=== PATIENT | female | born 2000 | race Two or more races ===

== ENCOUNTER 2021-04-14 21:11 | Emergency (ER) | payer OTHER ==
[~2021-04-14] VITALS: Ht 175.3 cm; Wt 90.9 kg
[2021-04-15] MEDS ORDERED: MORPHINE 2 MG/ML 1ML VIAL (J2270) IV PRN (01:20)
[2021-04-15] MEDS ORDERED: GI COCKTAIL 50ML BTL(HYOSCYAMINE/MAALOX/LIDOCAINE VISCOUS)(1:3:1) PO ONE (01:20)
[2021-04-15 01:25] LABS: BASO % 0.2 % (0.0-1.0); EOS # 0.1 10^3/uL (0.0-0.5); HEMOGLOBIN 13.5 g/dl (12.0-15.5); LYMPH # 1.5 10^3/uL (1.5-5.0); MEAN CORPUSCULAR HEMOGLOBIN 29.7 pg (27.0-33.0); MEAN CORPUSCULAR HGB CONC 32.9 g/dl (32.0-36.5); MEAN CORPUSCULAR VOLUME 90.3 fl (80.0-96.0); MONO # 0.5 10^3/uL (0.0-0.8); NEUTROPHILS # 2.8 10^3/uL (1.5-8.5); NEUTROPHILS % 56.4 % (36.0-66.0); PLATELET COUNT, AUTOMATED 227 10^3/uL (150-450); RED BLOOD COUNT 4.54 10^6/uL (4.00-5.40); WHITE BLOOD COUNT 4.9 10^3/uL (4.0-10.0)
[2021-04-15 01:55] LABS: ALBUMIN 3.7 GM/DL (3.2-5.2); ALT/SGPT 33 U/L (12-78); BILIRUBIN,DIRECT < 0.1 MG/DL (0.0-0.2); BILIRUBIN,TOTAL 0.3 MG/DL (0.2-1.0); BLOOD UREA NITROGEN 8 MG/DL (7-18); CALCIUM LEVEL 8.7 MG/DL (8.5-10.1); CARBON DIOXIDE LEVEL 27 MEQ/L (21-32); CHLORIDE LEVEL 109 MEQ/L (98-107); CREATININE FOR GFR 0.69 MG/DL (0.55-1.30); GLOMERULAR FILTRATION RATE > 60.0 (>60); GLUCOSE, FASTING 88 MG/DL (70-100); LIPASE 102 U/L (73-393); POTASSIUM SERUM 3.6 MEQ/L (3.5-5.1); SODIUM LEVEL 141 MEQ/L (136-145); TOTAL PROTEIN 7.2 GM/DL (6.4-8.2)
[2021-04-15 01:58] LABS: HCG, SERUM QUALITATIVE NEGATIVE (NEGATIVE)
[2021-04-15] MEDS ORDERED: ISOVUE-370 76% 100ML VIAL As Ordered ONE (02:32)
--- NOTE | 2021-04-15 04:05 | REPVR ---
PROCEDURE INFORMATION: Exam: CT Abdomen And Pelvis With Contrast Exam date and time: 04/15/2021 2:50 AM Age: 21 years old Clinical indication: Other: Abd pain x4 days TECHNIQUE: Imaging protocol: Computed tomography of the abdomen and pelvis with contrast. Radiation optimization: All CT scans at this facility use at least one of these dose optimization techniques: automated exposure control; mA and/or kV adjustment per patient size (includes targeted exams where dose is matched to clinical indication); or iterative reconstruction. Contrast material: ISOVUE 370; Contrast volume: 100 ml; Contrast route: INTRAVENOUS (IV); COMPARISON: No relevant prior studies available. FINDINGS: Liver: Unremarkable. No mass. Gallbladder and bile ducts: Normal. No calcified stones. No ductal dilation. Pancreas: Normal. No ductal dilation. Spleen: Normal. No splenomegaly. Adrenal glands: Normal. No mass. Kidneys and ureters: Unremarkable. No calculi or hydronephrosis. Stomach and bowel: Unremarkable. No obstruction. No inflammatory changes or mucosal thickening. Appendix: The tip of the appendix is borderline dilated at 8 mm. Remainder of the appendix is nondilated. No appendiceal wall thickening. No appendicoliths. Intraperitoneal space: Trace free fluid in the cul-de-sac. Vasculature: Unremarkable. No abdominal aortic aneurysm. Lymph nodes: Unremarkable. No enlarged lymph nodes. Urinary bladder: Unremarkable as visualized. Reproductive: There is a 3.6 cm fat containing heterogeneous mass in the left ovary. Additional complex solid mass with internal fat containing components and calcifications in the right ovary measuring at least 3.3 cm. The right ovary is difficult to separate from adjacent small bowel in the pelvis. No hydrosalpinx. Uterus is unremarkable. Bones/joints: Unremarkable. No acute fracture. Soft tissues: Unremarkable. IMPRESSION: 1. Bilateral ovarian dermoids. 2. Borderline dilation of the tip of the appendix. Remainder of the appendix is nondilated. No wall thickening or periappendiceal inflammatory changes. Electronically signed by: Shayan Short On 04/15/2021 04:05:40 AM
[2021-04-15] MEDS ORDERED: SUCR1TA PO (07:38)
[2021-04-15] MEDS ORDERED: OMEP40CA4 PO (07:38)
[2021-04-15 07:57] VITALS: BP 121/73
--- NOTE | 2021-04-20 11:18 | ED PDOC ---
Post-Departure Follow-Up radiology report faxed to [facility] Mary Xavier MD Apr 20, 2021 11:18
== END 2021-04-15 07:58 | disposition home or self-care (01) ==
LOC: M ED 21:11
DX: K29.70 Gastritis, unspecified, without bleeding (principal); Z88.0 Allergy status to penicillin; Z88.1 Allergy status to other antibiotic agents; Z88.2 Allergy status to sulfonamides; Z88.8 Allergy status to other drugs, medicaments and biological substances; F17.210 Nicotine dependence, cigarettes, uncomplicated
CPT/HCPCS: 36415; 74177; 80048; 80076; 81001; 83605; 83690; 84703; 85025; 99284; Q9967

== ENCOUNTER → 2024-05-06 | Outpatient (CLI) | payer BC ==
[~2024-05-06] MED LIST: OMEP40CA4 PO; SUCR1TA PO
== END ==
LOC: M RAD 16:32
PROVIDERS: ATTEND Student in an Organized Health Care Education/Training Program
DX: M25.571 Pain in right ankle and joints of right foot (principal); R22.41 Localized swelling, mass and lump, right lower limb